=== PATIENT | male | born 1995 | race Caucasian/White ===

== ENCOUNTER 2023-11-16 10:38 | Emergency (ER) | payer OTHER, MEDICAID ==
[~2023-11-16] VITALS: Ht 160 cm; Wt 70.3 kg
[2023-11-16 10:40] VITALS: BP_SYST 127; PULSE 77; RESP 17; TEMP 97.7; O2SAT 97
[2023-11-16 10:43] VITALS: BP_SYST 127; PULSE 77; RESP 17; TEMP 97.7; O2SAT 97
== END 2023-11-16 10:57 ==
LOC: SED 10:38
DX: Z02.89 Encounter for other administrative examinations (principal)
CPT/HCPCS: 99283